=== PATIENT | male | born 1955 | race Caucasian/White ===

== ENCOUNTER 2016-10-26 13:30 | Emergency (ER) | payer OTHER ==
[~2016-10-26] VITALS: Ht 170.2 cm; Wt 58.1 kg
--- NOTE | ~2016-10-26 | EKG ---
[place] [address] [facility] [place] [address] ELECTROCARDIOGRAM REPORT Name: STEPHY STRINGER [id number] Admission: 10/26/16 Attend Phys: Discharge: 10/26/16 Date of : 53 Report #: [id number] THIS REPORT FOR: //name// [facility] ED Test Date: 2016-10-26 Test Time: 13:46:39 Pat Name: STEPHY STRINGER Department: Room: Gender: M Electrical Accessories I Assembler: Denilson HOLGUIN : 1955 Requested By: Saundra Leslie Order Number: [id number] MD: Fernando Reynaga Measurements Intervals [place] Rate: 96 P: 111 [place]: 130 QRS: 122 QRSD: 80 T: 131 QT: 330 QTc: 417 Interpretive Statements Right and left arm electrode reversal, interpretation assumes no reversal Sinus rhythm Consider left ventricular hypertrophy Anterior ST elevation, probably due to LVH Tall T, consider metabolic/ischemic abnrm Baseline wander in lead(s) II,III,aVF Electronically Signed On 10-26-2016 18:06:03 CDT by Fernando Reynaga [email or web address] <ELECTRONICALLY SIGNED> By: Fernando Reynaga MD 10/26/16 1806 1346 1346 Fernando Reynaga MD /EPI
--- NOTE | ~2016-10-26 | EKG ---
[address] [address] ELECTROCARDIOGRAM REPORT Name: STEPHY STRINGER Room #: [facility]#: [id number] Admission: 10/26/16 Attend Phys: Discharge: 10/26/16 Date of : 53 Report #: [id number] THIS REPORT FOR: //name// [facility] ED Test Date: 2016-10-26 Test Time: 14:09:56 Pat Name: SETPHY STRINGER Department: Room: Gender: M Surgical Orderly: DOROTHY : 1955 Requested By: Saundra Leslie Order Number: [id number] MD: Fernando Reynaga Measurements Intervals [place] Rate: 86 P: 49 [place]: 138 QRS: 54 QRSD: 77 T: 46 QT: 344 QTc: 412 Interpretive Statements Sinus rhythm Minimal ST elevation, anterior leads Compared to ECG 07/08/2016 15:18:29 ST (T wave) deviation now present Electronically Signed On 10-26-2016 18:06:41 CDT by Fernando Reynaga [email or web address] <ELECTRONICALLY SIGNED> By: Fernando Reynaga MD 10/26/16 1806 08 08 Fernando Reynaga MD /АННА
[~2016-10-26 13:30] MED LIST: AVELOX400 MG PO; CHANTIX1 EACH PO; GLUCOPHAGE1000 MG PO; GLUCOPHAGE500 MG PO; GLUCOTROL5 MG; HUMALOG100 UNIT/1 SUBQ; LANTUS100 UNIT/M SUBQ; LORTAB 5 MG/5001 TA1 PO; METFORMIN; NEXIUM; NORCO 5-325 TA1 EACH PO; PENICILLIN VK250 MG PO
[2016-10-26 14:14] LABS: ABSOLUTE NEUTROPHILS 11.7 thou/uL (1.4-8.2); BASOPHILS 0.9 % (0.0-2.0); EOSINOPHILS 1.1 % (0.0-3.0); HEMATOCRIT 37.3 % (42.0-52.0); HEMOGLOBIN 12.3 gm/dL (14.0-18.0); LYMPHOCYTES 16.9 % (24.0-44.0); MCH 29.4 pg (26.0-34.0); MONOCYTES 10.5 % (1.0-8.0); PLATELET COUNT 507 thou/uL (150-400); POLYS 70.6 % (36.0-66.0); RBC 4.19 mil/uL (4.50-6.00); RDW 13.2 % (10.5-14.5); WBC 16.6 thou/uL (4.0-11.0)
[2016-10-26 14:15] LABS: MANUAL DIFF NO
[2016-10-26 14:18] LABS: ANION GAP 7 mmol/L (7-16); BUN 18 mg/dL (7-18); CALCIUM 8.4 mg/dL (8.5-10.1); CHLORIDE 98 mmol/L (98-107); CO2 24 mmol/L (21-32); CREATININE 1.4 mg/dL (0.7-1.3); GLUCOSE 274 mg/dL (74-106); POTASSIUM 5.6 mmol/L (3.5-5.1); SODIUM 129 mmol/L (136-145)
[2016-10-26 14:27] LABS: TROPONIN-I < 0.04 ng/mL (<0.04-0.07)
[2016-10-26] MEDS ORDERED: NORCO 5-325 TA1 EACH PO (16:32)
== END 2016-10-26 17:13 | disposition home or self-care (01) ==
LOC: ER 13:30
PROVIDERS: Emergency Medicine
DX: R07.9 Chest pain, unspecified (principal); K56.7 Ileus, unspecified; D72.829 Elevated white blood cell count, unspecified

== ENCOUNTER 2017-04-05 15:53 | Inpatient (IN) | payer OTHER ==
[~2017-04-05] VITALS: Ht 170.2 cm; Wt 49.4 kg
--- NOTE | ~2017-04-05 | EKG ---
[address] [place] [address] ELECTROCARDIOGRAM REPORT Name: MYKESTEPHY A Room #: 355-P ADM IN M.R.#: [id number] Admission: 04/05/17 Attend Phys: Flora Penny Discharge: Date of : 53 Report #: [id number] THIS REPORT FOR: //name// [facility] ED Test Date: 2017-04-05 Test Time: 18:07:07 Pat Name: STEPHY STRINGER Department: Room: [facility] Gender: M Community Nutrition Educator: [id number] : 1955 Requested By: Bob Roque Order Number: [id number] MD: Fernando Reynaga Measurements Intervals [place] Rate: 73 P: 56 [place]: 151 QRS: 55 QRSD: 83 T: 42 QT: 371 QTc: 409 Interpretive Statements Sinus rhythm Consider left ventricular hypertrophy Compared to ECG 10/26/2016 14:09:56 ST (T wave) deviation no longer present Electronically Signed On 04-05-2017 21:36:59 FURNITURE FINISHER by Fernando Reynaga [email or web address] <ELECTRONICALLY SIGNED> By: Fernando Reynaga MD 04/05/17 2136 06 06 Fernando Reynaga MD /EPI
--- NOTE | ~2017-04-05 | CNG ---
[facility] [place] [address] CYTO-NONGYN REPORT PROCEDURE Name: DEVIN LONG SR Room #: 355-P ADM IN M.R.#: [id number] Admission: 04/05/17 Date of : 53 Discharge: Report #: [id number] Path Case #: [id number] CYTOPATHOLOGY REPORT COLLECTION DATE: 04/06/2017 RECEIVED DATE: 04/06/2017 SUBMITTING PHYS: Dr. Richard Esqueda OTHER PHYS: Dr. Flora Penny CLINICAL HISTORY: Hemoptysis, leukocytosis SPECIMEN(S) RECEIVED: A.Sputum * * * * * * * * * * * * FINAL DIAGNOSIS: A. Sputum: - Unsatisfactory specimen for adequate cytologic evaluation due to lack of pulmonary macrophages representing the lower respiratory tract. PATHOLOGIST: Diaz Jackson M.D. REPORT ELECTRONICALLY SIGNED BY: Diaz Jackson M.D. DATE/TIME: 04/07/2017 09:39 * * * * * * * * * * * * GROSS PATHOLOGY: A. Sputum: The specimen is submitted unfixed, labeled "Devin Long Sr". Received by the Cytology Department is one mL of cloudy red fluid. One ThinPrep slide was prepared. (mm 04.06.2017) CARBON PRINTER(S): SIMON Bird([facility]) INITIAL CPT CODE(S): A; 06937 Professional services performed by [facility] at [facility] [address] , [place] [address] Technical services performed by [facility] at [address] [place] [address]., [address], [place] [address]. [facility] [address] [place] [address], [address] [place] [address] PHONE: [phone] [facility] [address] [place] [address] CYTO-NONGYN REPORT PROCEDURE Name: DEVIN LONG Room #: 355-P ADM IN M.R.#: [id number] Admission: 04/05/17 Date of : 53 Discharge: Report #: [id number] Path Case #: [id number] DIRECTOR: Isidro Toscano M.D. * * * END OF REPORT * * *
--- NOTE | ~2017-04-05 | HC ---
[facility] [address] CONSULTATION Name: STEPHY STRINGER Room #: 355-P [facility] IN ..#: [id number] Admission: 04/05/17 Attend Phys: Flora Penny Discharge: 04/07/17 Date of : 53 Report #: [id number] THIS REPORT FOR: //name// CC: Bhavik Roque MD [facility] physician/PCP Flora Penny MD DATE OF SERVICE: 04/05/2017 HYDROELECTRIC PLANT ELECTRICIAN: Noman Menchaca MD REASON FOR CONSULTATION: Bleeding from the upper respiratory tract. SPECIALITY: Otolaryngology. HISTORY OF PRESENT ILLNESS: The patient is a 61-year-old male who is a very poor historian. He has a history of insulin-dependent diabetes. He has had some bleeding from the nose two days ago. Last night or today, he started coughing up bright red blood this morning. He thought it was coming from his mouth. He no longer had any bleeding from the nose today. He presented to the Emergency Room and was admitted for this. Upon evaluation here, no site of bleeding was detected. He had a negative CT of his head and a negative sinus CT. His white blood cell count is elevated at 16,000. He has anemia with hemoglobin of 10.4. He has platelet count of 450,000. Upon further discussion, I learned that he had a bone marrow biopsy about 8 months ago at the [facility] where he works. He reported that the bone marrow biopsy was normal and that the bone marrow biopsy was done because of abnormal blood tests like these. 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 I also learned way into the conversation that he has been taking a quick pain medicine called "Painaid." This contains acetaminophen, aspirin and caffeine. He has been taking high doses of this over the last week for dental pain. PAST MEDICAL HISTORY: 1. Pancreatitis. 2. Insulin-dependent diabetes mellitus. PAST SURGICAL HISTORY: Cholecystectomy and kidney surgery. SOCIAL HISTORY: Smokes a pack per day and drinks 4-5 beers per day. [facility] [address] [place] [address] CONSULTATION Name: MYKELAURENSonido Gutierres Room #: 355-P [facility]#: [id number] Admission: 04/05/17 Attend Phys: Flora Penny Discharge: 04/07/17 Date of : 53 Report #: [id number] ALLERGIES: None. MEDICATIONS: On admission, insulin and pantoprazole. PHYSICAL EXAMINATION: GENERAL: [place] -[place] male in no acute distress. HEENT: Ears: Normal tympanic membranes. Nose: Deviated septum to the left, otherwise normal mucosa with no signs of bleeding from the nose. Oral: Very poor dentition with rotting teeth. There are a few petechiae of the soft palate and hard palate. Initially, there was no bleeding encountered, but later during the exam one of these petechiae began bleeding. FIBEROPTIC LARYNGOSCOPY: Fiberoptic laryngoscope was passed through the right side of the nose. The nasopharynx looks normal. The hypopharynx and oropharynx looked normal. The larynx looks normal with normal vocal cord mobility and no pathology. There was some fresh blood in the vallecula. ASSESSMENT: 1. Bleeding from soft palate and hard palate in small amounts in a patient who has been taking heavy doses of aspirin. 2. Anemia, leukocytosis and thrombocytosis of uncertain etiology. I suspect a myeloproliferative disorder, although this has been evaluated apparently by Hematology/Oncology. RECOMMENDATION: 1. My findings were discussed with Dr. Sai Esqueda. I have suggested to the patient that he return to the [place] to continue his workup there since he has a regular group of physicians he sees there and since he works there. Otherwise, I think we would be repeating his previous hematology evaluation. 2. I applied some silver nitrate to the bleeding site on the palate with a silver nitrate stick. <ELECTRONICALLY SIGNED> By: Noman Menchaca MD 04/07/17 1736 39 2240 Noman Menchaca MD /nt
[2017-04-05 15:54] VITALS: BP 168/100
[2017-04-05 17:18] LABS: HEMOGLOBIN 10.4 gm/dL (14.0-18.0); MCH 30.4 pg (26.0-34.0); MCHC 33.5 g/dL (28.0-37.0); MCV 90.9 fL (80.0-100.0); RBC 3.41 mil/uL (4.50-6.00); RDW 12.6 % (10.5-14.5); WBC 17.3 thou/uL (4.0-11.0)
[2017-04-05] MEDS ORDERED: NOVOLOG100 UNIT/1 SUBQ (17:24)
[2017-04-05 17:28] LABS: CALCIUM 8.6 mg/dL (8.5-10.1); CREATININE 1.6 mg/dL (0.7-1.3); POTASSIUM 4.6 mmol/L (3.5-5.1)
[2017-04-05 17:32] LABS: APTT 26.2 Seconds (24.5-32.8); INR 1.1; PROTIME 11.6 Seconds (9.3-11.4)
[2017-04-05 19:08] LABS: AMP/METHAMP Negative (Negative); BARBITURATES Negative (Negative); BENZODIAZEPINES Negative (Negative); COCAINE Negative (Negative); METHADONE Negative (Negative); OPIATES Negative (Negative); PCP Negative (Negative); THC Negative (Negative)
[2017-04-05 19:27] VITALS: BP 154/92
[2017-04-05 19:35] VITALS: BP 169/84
[2017-04-05 23:47] VITALS: BP 147/90
[2017-04-06 01:43] LABS: ABSOLUTE NEUTROPHILS 9.9 thou/uL (1.4-8.2); BASOPHILS 0.8 % (0.0-2.0); EOSINOPHILS 1.6 % (0.0-3.0); HEMATOCRIT 34.6 % (42.0-52.0); HEMOGLOBIN 11.3 gm/dL (14.0-18.0); LYMPHOCYTES 30.6 % (24.0-44.0); MCH 29.7 pg (26.0-34.0); MCHC 32.8 g/dL (28.0-37.0); MCV 90.7 fL (80.0-100.0); MONOCYTES 10.4 % (1.0-8.0); PLATELET COUNT 452 thou/uL (150-400); POLYS 56.6 % (36.0-66.0); RBC 3.81 mil/uL (4.50-6.00); RDW 12.3 % (10.5-14.5); WBC 17.5 thou/uL (4.0-11.0)
[2017-04-06 01:49] LABS: MANUAL DIFF NO
[2017-04-06 01:57] LABS: ALBUMIN 3.1 g/dL (3.4-5.0); CALCIUM 8.8 mg/dL (8.5-10.1); CREATININE 1.8 mg/dL (0.7-1.3); MAGNESIUM 1.5 mg/dL (1.8-2.4); TOTAL BILIRUBIN 0.6 mg/dL (<0.1-1.0)
[2017-04-06 04:00] VITALS: BP 128/73
[2017-04-06 07:26] VITALS: BP 157/74
[2017-04-06 08:51] LABS: CHOLESTEROL 121 mg/dL (<200); HDL CHOLESTEROL 38 mg/dL (>40); LDL CHOLESTEROL 61 mg/dL (<100); TC:HDL 3.2 Ratio (Not establshd); TRIGLYCERIDE 113 mg/dL (<150); TROPONIN-I < 0.04 ng/mL (<0.06); VLDL 23 mg/dL (<40)
[2017-04-06 11:11] VITALS: BP 169/69
[2017-04-06 15:14] VITALS: BP 130/68
[2017-04-06 16:08] LABS: GLYCOHEMOGLOBIN (HGB A1C) 8.9 % (4.8-5.6)
[2017-04-06 20:20] VITALS: BP 140/66
[2017-04-07 04:35] VITALS: BP 126/70
[2017-04-07 05:44] LABS: HEMATOCRIT 32.5 % (42.0-52.0); MCH 30.6 pg (26.0-34.0); MCHC 33.8 g/dL (28.0-37.0); MCV 90.5 fL (80.0-100.0); RBC 3.59 mil/uL (4.50-6.00); RDW 12.9 % (10.5-14.5); WBC 14.7 thou/uL (4.0-11.0)
[2017-04-07 08:06] VITALS: BP 137/76
[2017-04-07 09:23] VITALS: BP 137/76
[2017-04-08 14:07] LABS: NIL (NEGATIVE) CONTROL SPOT CT 1; PANEL A SPOT CT 0; PANEL B SPOT CT 0; POSITIVE CONTROL SPOT COUNT > 20; T-SPOT.TB Negative
== END 2017-04-07 10:31 | disposition home or self-care (01) | DRG 682 ==
LOC: ER 15:53 → EROBS 19:02 → 3W 19:02
PROVIDERS: Emergency Medicine; Hospitalist; Internal Medicine Pulmonary Disease; Nurse Practitioner Family
DX: N17.9 Acute kidney failure, unspecified (principal); E43 Unspecified severe protein-calorie malnutrition; R04.2 Hemoptysis; Z68.1 Body mass index [BMI] 19.9 or less, adult; R04.0 Epistaxis; G89.29 Other chronic pain; E11.22 Type 2 diabetes mellitus with diabetic chronic kidney disease; C67.9 Malignant neoplasm of bladder, unspecified; F17.210 Nicotine dependence, cigarettes, uncomplicated; D72.829 Elevated white blood cell count, unspecified; D64.9 Anemia, unspecified; N18.9 Chronic kidney disease, unspecified; J43.9 Emphysema, unspecified; D47.3 Essential (hemorrhagic) thrombocythemia; Z79.899 Other long term (current) drug therapy; Z86.718 Personal history of other venous thrombosis and embolism; Z86.711 Personal history of pulmonary embolism; Z79.4 Long term (current) use of insulin; Z90.49 Acquired absence of other specified parts of digestive tract
CPT/HCPCS: 10779

== ENCOUNTER → 2017-06-24 | Outpatient (CLI) | payer BC, OTHER ==
[~2017-06-24] MED LIST changes: +ALDACTONE50 MG PO; +ASPIR 8181 MG PO; +COZAAR 25 MG TA25 M1 PO; +IBUPROFEN 600600 M1 PO; +METFORMIN HCL500 MG PO; +NOVOLOG100 UNIT/1 SUBQ
== END ==
LOC: RAD 16:31
DX: M51.36 Other intervertebral disc degeneration, lumbar region (principal); M25.561 Pain in right knee; M25.562 Pain in left knee

== ENCOUNTER 2017-08-15 07:23 | Emergency (ER) | payer BC, OTHER ==
[~2017-08-15] VITALS: Ht 170.2 cm; Wt 63.5 kg
--- NOTE | ~2017-08-15 | EKG ---
[address] [address] ELECTROCARDIOGRAM REPORT Name: STEPHY STRINGER Room #: [facility]#: [id number] Admission: 08/15/17 Attend Phys: Discharge: 08/15/17 Date of : 53 Report #: [id number] THIS REPORT FOR: //name// [facility] ED Test Date: 2017-08-15 Test Time: 07:51:28 Pat Name: STEPHY STRINGER Department: Room: Gender: M Child Nutrition Assistant: KF : 1955 Requested By: Saundra Leslie Order Number: [id number] MD: Fernando Reynaga Measurements Intervals [place] Rate: 87 P: 53 [place]: 145 QRS: 53 QRSD: 73 T: 46 QT: 349 QTc: 420 Interpretive Statements Sinus rhythm Atrial premature complex Compared to ECG 04/05/2017 18:07:07 Atrial premature complex(es) now present Electronically Signed On 08-15-2017 11:00:15 CDT by Fernando Reynaga [email or web address] <ELECTRONICALLY SIGNED> By: Fernando Reynaga MD 08/15/17 1100 0 075 Fernando Reynaga MD /АННА
[~2017-08-15 07:23] MED LIST changes: -ALDACTONE50 MG PO; -ASPIR 8181 MG PO; -COZAAR 25 MG TA25 M1 PO; -IBUPROFEN 600600 M1 PO; -METFORMIN HCL500 MG PO
[2017-08-15 07:51] LABS: HEMATOCRIT 34.9 % (42.0-52.0); HEMOGLOBIN 11.6 gm/dL (14.0-18.0); MCH 31.4 pg (26.0-34.0); MCHC 33.3 g/dL (28.0-37.0); MCV 94.3 fL (80.0-100.0); PLATELET COUNT 506 thou/uL (150-400); RDW 13.9 % (10.5-14.5); WBC 15.3 thou/uL (4.0-11.0)
[2017-08-15 07:58] LABS: ANION GAP 8 mmol/L (7-16); BUN 9 mg/dL (7-18); CALCIUM 9.1 mg/dL (8.5-10.1); CHLORIDE 106 mmol/L (98-107); CO2 24 mmol/L (21-32); CREATININE 1.4 mg/dL (0.7-1.3); GLUCOSE 295 mg/dL (74-106); POTASSIUM 4.8 mmol/L (3.5-5.1); SODIUM 138 mmol/L (136-145)
[2017-08-15 08:02] LABS: ALBUMIN 2.4 g/dL (3.4-5.0); DIRECT BILIRUBIN 0.3 mg/dL (<0.1-0.3); TOTAL BILIRUBIN 0.7 mg/dL (<0.1-1.0); TOTAL PROTEIN 6.6 g/dL (6.4-8.2)
[2017-08-15 08:07] LABS: TROPONIN-I < 0.04 ng/mL (<0.06)
[2017-08-15 08:51] LABS: ABSOLUTE NEUTROPHILS 10.4 thou/uL (1.4-8.2); ANISOCYTOSIS 1+; HYPOCHROMASIA 1+; TARGET CELLS OCCASIONAL
[2017-08-15] MEDS ORDERED: IBUPROFEN 600600 M1 PO (09:06)
[2017-08-15] MEDS ORDERED: NORCO 5-325 TA1 EACH PO (09:08)
== END 2017-08-15 09:34 | disposition home or self-care (01) ==
LOC: ER 07:23
PROVIDERS: Emergency Medicine
DX: I80.3 Phlebitis and thrombophlebitis of lower extremities, unspecified (principal); R60.0 Localized edema; D72.829 Elevated white blood cell count, unspecified; R94.5 Abnormal results of liver function studies; E11.9 Type 2 diabetes mellitus without complications; F17.210 Nicotine dependence, cigarettes, uncomplicated; Z85.51 Personal history of malignant neoplasm of bladder

== ENCOUNTER 2018-02-24 18:33 | Inpatient (IN) | payer BC, OTHER ==
[~2018-02-24] VITALS: Ht 170.2 cm; Wt 55.6 kg
--- NOTE | ~2018-02-24 | PATH ---
[facility] [address] [address] PATHOLOGY RPT PROCEDURE Name: STEPHY STRINGER Room #: 363-P [facility] IN ..#: [id number] Admission: 02/24/18 Date of : 53 Discharge: 02/27/18 Report #: [id number] Path Case #: [id number] Note [facility] Accession Number: [id number] TESTS RESULT FLAG UNITS REF RANGE LAB Clinician Provided Cytology Information No. of containers..01 Other (Miscellaneous) Source: ABDOMINAL FLUID DIAGNOSIS: 02 ABDOMINAL FLUID INCONCLUSIVE. THIS INTERPRETATION INCLUDES EVALUATION OF A CELL BLOCK. 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 Signed out by: 02 Fantasma Vidal MD, Pathologist NPI- [id number] Performed by: 01 Brigido Ernandez, Trailer Rental Clerk ([facility]) Gross description: 01 18ML, YELLOW, CLOUDY /LCS FLAG LEGEND: L-Low Normal,H-High Normal,LL-Alert Low,HH-Alert High <-Panic Low,>-Panic High,A-Abnormal,AA-Critical Abnormal Performed at: [address] [place] [address] Julián Sloan MD, [address] [address] Edith Gray MD, Specimen Comment: Report sent to Performed at: [address], [place], [place] [id number] MD Julián Sloan MD Phone: [phone]
--- NOTE | ~2018-02-24 | EKG ---
[address] [place] [address] ELECTROCARDIOGRAM REPORT Name: MYKESTEPHY Gutierres Room #: [facility]#: [id number] Admission: Attend Phys: Discharge: Date of : 53 Report #: [id number] THIS REPORT FOR: //name// [facility] ED Test Date: 2018-02-24 Test Time: 18:43:30 Pat Name: STEPHY STRINGER Department: Room: Gender: M Restaurant Host: MIKALA : 1955 Requested By: Noman Longoria Order Number: [id number] MD: Measurements Intervals [place] Rate: 113 P: 50 [place]: 144 QRS: 49 QRSD: 76 T: 44 QT: 307 QTc: 421 Interpretive Statements Sinus tachycardia Anteroseptal infarct, old Compared to ECG 08/15/2017 07:51:28 Myocardial infarct finding now present Sinus rhythm no longer present Atrial premature complex(es) no longer present [email or web address] By: 42 42 Epiphany Epiphany, /EPI
[~2018-02-24 18:33] MED LIST changes: +IBUPROFEN 600600 M1 PO
[2018-02-24 18:34] VITALS: BP 151/88
[2018-02-24 19:38] LABS: HEMATOCRIT 38.6 % (42.0-52.0); HEMOGLOBIN 13.3 gm/dL (14.0-18.0); MCH 31.8 pg (26.0-34.0); MCHC 34.5 g/dL (28.0-37.0); MCV 92.2 fL (80.0-100.0); PLATELET COUNT 544 thou/uL (150-400); RBC 4.19 mil/uL (4.50-6.00); RDW 14.6 % (10.5-14.5); WBC 12.3 thou/uL (4.0-11.0)
[2018-02-24 19:55] LABS: ANION GAP 7 mmol/L (7-16); BUN 7 mg/dL (7-18); CALCIUM 8.7 mg/dL (8.5-10.1); CHLORIDE 97 mmol/L (98-107); CO2 19 mmol/L (21-32); GLUCOSE 203 mg/dL (74-106); POTASSIUM 5.3 mmol/L (3.5-5.1); SODIUM 123 mmol/L (136-145)
[2018-02-24 20:00] LABS: ALBUMIN 2.4 g/dL (3.4-5.0); DIRECT BILIRUBIN 0.2 mg/dL (<0.1-0.3); SGOT 105 U/L (15-37); SGPT 43 U/L (30-65); TOTAL BILIRUBIN 0.8 mg/dL (<0.1-1.0); TOTAL PROTEIN 7.5 g/dL (6.4-8.2); TROPONIN-I <0.06 ng/mL (<0.06)
[2018-02-24 20:06] LABS: ABSOLUTE NEUTROPHILS 6.8 thou/uL (1.4-8.2); ANISOCYTOSIS 1+
[2018-02-24] MEDS ORDERED: METFORMIN HCL500 MG PO (21:04)
[2018-02-24 22:46] VITALS: BP 143/87
[2018-02-24 23:46] VITALS: BP 148/87
[2018-02-25] MEDS ORDERED: COZAAR 25 MG TA25 M1 PO (01:47)
[2018-02-25] MEDS ORDERED: ASPIR 8181 MG PO (01:47)
[2018-02-25 04:03] VITALS: BP 124/75
[2018-02-25 06:12] LABS: HEMATOCRIT 40.6 % (42.0-52.0); HEMOGLOBIN 13.8 gm/dL (14.0-18.0); MCH 31.7 pg (26.0-34.0); MCV 93.1 fL (80.0-100.0); RBC 4.36 mil/uL (4.50-6.00); RDW 14.6 % (10.5-14.5); WBC 11.7 thou/uL (4.0-11.0)
[2018-02-25 06:21] LABS: APTT 27.6 Seconds (24.5-32.8); INR 1.2
[2018-02-25 06:30] LABS: ALBUMIN 2.5 g/dL (3.4-5.0); CALCIUM 8.8 mg/dL (8.5-10.1); CREATININE 1.1 mg/dL (0.7-1.3); POTASSIUM 4.5 mmol/L (3.5-5.1); TOTAL PROTEIN 7.4 g/dL (6.4-8.2)
[2018-02-25 08:00] VITALS: BP 126/83
[2018-02-25 11:48] LABS: SOURCE ABDOMINAL FLUID; TOTAL VOLUME 60 mL
[2018-02-25 11:49] LABS: CLARITY CLEAR; COLOR YELLOW
[2018-02-25 12:41] LABS: BF NUCLEATED CELLS 191; BF RBC 370
[2018-02-25 14:05] LABS: BF NEUTROPHILS 12
[2018-02-25 14:15] LABS: % SATURATION 97 % (20-39); IRON 168 ug/dL (65-175); TIBC 173 ug/dL (250-450)
[2018-02-25 15:07] LABS: HAV IgM AB (ANTI-HAV IgM) Negative (Negative); HEPATITIS B SURFACE AG Negative (Negative); HEPATITIS C VIRUS AB <0.1 (0.0-0.9)
[2018-02-25 16:35] VITALS: BP 139/108
[2018-02-25 20:10] VITALS: BP 144/94
[2018-02-26 05:20] VITALS: BP 129/64
[2018-02-26 07:03] LABS: HEMATOCRIT 37.7 % (42.0-52.0); MCH 32.1 pg (26.0-34.0); MCHC 34.5 g/dL (28.0-37.0); MCV 92.9 fL (80.0-100.0); RBC 4.06 mil/uL (4.50-6.00); RDW 14.5 % (10.5-14.5); WBC 13.1 thou/uL (4.0-11.0)
[2018-02-26 07:16] LABS: CALCIUM 8.9 mg/dL (8.5-10.1); CREATININE 1.2 mg/dL (0.7-1.3); POTASSIUM 4.4 mmol/L (3.5-5.1)
[2018-02-26 09:57] LABS: SOURCE ABDOMINAL
[2018-02-26 11:40] VITALS: BP 122/70
[2018-02-26 16:06] LABS: IgG 1383 mg/dL (700-1600)
[2018-02-26 19:38] VITALS: BP 137/86
[2018-02-27 03:40] VITALS: BP 105/68
[2018-02-27 04:36] LABS: HEMOGLOBIN 12.2 gm/dL (14.0-18.0); MCH 31.3 pg (26.0-34.0); MCHC 33.8 g/dL (28.0-37.0); MCV 92.5 fL (80.0-100.0); RBC 3.89 mil/uL (4.50-6.00); RDW 14.3 % (10.5-14.5); WBC 12.7 thou/uL (4.0-11.0)
[2018-02-27 04:47] LABS: CALCIUM 8.6 mg/dL (8.5-10.1); CREATININE 1.1 mg/dL (0.7-1.3)
[2018-02-27 08:34] VITALS: BP 127/103
[2018-02-27] MEDS ORDERED: ALDACTONE50 MG PO (12:01)
[2018-02-27 12:39] VITALS: BP 127/103
[2018-02-27 13:05] LABS: BODY FLUID ALBUMIN 0.7 g/dL (()); BODY FLUID AMYLASE 15 U/L (()); BODY FLUID GLUCOSE 147 mg/dL (()); BODY FLUID LDH 67 IU/L (()); BODY FLUID PROTEIN 1.8 g/dL (())
[2018-02-28 10:07] LABS: ANA INTERPRETATION Negative (Negative)
[2018-02-28 13:09] LABS: CERULOPLASMIN 28.3 mg/dL (16.0-31.0)
== END 2018-02-27 13:19 | disposition home or self-care (01) | DRG 432 ==
LOC: ER 18:33 → EROBS 22:21 → 3W 22:21
PROVIDERS: Emergency Medicine; Hospitalist; Nurse Practitioner; Nurse Practitioner Family
PROC: 0W9G3ZZ Drainage of Peritoneal Cavity, Percutaneous Approach (ICD-10-PCS; principal; 2018-02-25)
DX: K70.31 Alcoholic cirrhosis of liver with ascites (principal); K85.90 Acute pancreatitis without necrosis or infection, unspecified; E87.1 Hypo-osmolality and hyponatremia; E87.5 Hyperkalemia; M19.90 Unspecified osteoarthritis, unspecified site; G89.29 Other chronic pain; M54.9 Dorsalgia, unspecified; I10 Essential (primary) hypertension; C67.9 Malignant neoplasm of bladder, unspecified; D72.829 Elevated white blood cell count, unspecified; E11.9 Type 2 diabetes mellitus without complications; F17.210 Nicotine dependence, cigarettes, uncomplicated; Z90.49 Acquired absence of other specified parts of digestive tract; Z86.711 Personal history of pulmonary embolism; Z86.718 Personal history of other venous thrombosis and embolism; Z79.4 Long term (current) use of insulin; Z79.84 Long term (current) use of oral hypoglycemic drugs
CPT/HCPCS: 10879

== ENCOUNTER 2018-04-11 11:00 | Inpatient (IN) | payer BC, OTHER ==
[~2018-04-11] VITALS: Ht 170.2 cm; Wt 53.3 kg
--- NOTE | ~2018-04-11 | EKG ---
[address] [address] ELECTROCARDIOGRAM REPORT Name: STEPHY STRINGER Room #: 209-P [facility] IN ..#: [id number] Admission: 04/11/18 Attend Phys: To Ko MD Discharge: Date of : 53 Report #: [id number] THIS REPORT FOR: //name// [facility] ED Test Date: 2018-04-11 Test Time: 13:03:04 Pat Name: STEPHY STRINGER Department: Room: 209 Gender: M Inventory Control Assistant: CARLOS : 1955 Requested By: Isaiah Chowdary Order Number: [id number] MD: Cayetano Lizama Measurements Intervals [place] Rate: 105 P: 55 [place]: 138 QRS: 58 QRSD: 71 T: 53 QT: 322 QTc: 426 Interpretive Statements Sinus tachycardia Borderline low voltage, extremity leads Compared to ECG 02/24/2018 18:43:30 Septal Q waves less prominent Electronically Signed On 04-12-2018 8:45:52 CUSTOMER SOLUTIONS SPECIALIST by Cayetano Lizama [email or web address] <ELECTRONICALLY SIGNED> By: Cayetano Lizama MD, [facility] 04/12/18 0845 1303 130 Cayetano Lizama MD, [facility] /EPI
[~2018-04-11 11:00] MED LIST changes: +ALDACTONE50 MG PO; +ASPIR 8181 MG PO; +COZAAR 25 MG TA25 M1 PO; +METFORMIN HCL500 MG PO
[2018-04-11 11:04] VITALS: BP 160/102
[2018-04-11 13:12] LABS: HEMOGLOBIN 14.2 gm/dL (14.0-18.0); MCHC 34.7 g/dL (28.0-37.0); MCV 92.4 fL (80.0-100.0); RBC 4.44 mil/uL (4.50-6.00); RDW 14.1 % (10.5-14.5); WBC 21.1 thou/uL (4.0-11.0)
[2018-04-11 13:21] LABS: CALCIUM 9.9 mg/dL (8.5-10.1); CREATININE 1.3 mg/dL (0.7-1.3)
[2018-04-11 13:22] LABS: POTASSIUM 6.1 mmol/L (3.5-5.1)
[2018-04-11 13:27] LABS: ALBUMIN 3.4 g/dL (3.4-5.0); TOTAL BILIRUBIN 0.7 mg/dL (<0.1-1.0); TOTAL PROTEIN 9.2 g/dL (6.4-8.2)
[2018-04-11 13:29] LABS: ABSOLUTE NEUTROPHILS 19.4 thou/uL (1.4-8.2); ANISOCYTOSIS SLIGHT
[2018-04-11 13:45] LABS: PLATELET COUNT 797 thou/uL (150-400)
[2018-04-11 14:10] LABS: URINE BILIRUBIN NEGATIVE (Negative); URINE BLOOD NEGATIVE (Negative); URINE CLARITY CLEAR; URINE COLOR YELLOW; URINE GLUCOSE-RANDOM* NEGATIVE (Negative); URINE KETONES NEGATIVE (Negative); URINE LEUKOCYTES-REFLEX NEGATIVE (Negative); URINE NITRITE-REFLEX NEGATIVE (Negative); URINE PROTEIN (DIPSTICK) NEGATIVE (Negative); URINE UROBILINOGEN 0.2 E.U./dl (0.2-1.0)
[2018-04-11 15:17] VITALS: BP 151/96
[2018-04-11 16:00] VITALS: BP 150/60
[2018-04-11 16:30] VITALS: BP 138/96
[2018-04-11 18:03] LABS: CLARITY CLEAR; COLOR YELLOW; SOURCE ABDOMEN; TOTAL VOLUME 4 mL
[2018-04-11 18:10] LABS: BF NUCLEATED CELLS 197; BF RBC 316
[2018-04-11 18:50] LABS: BF NEUTROPHILS 9
[2018-04-11 18:51] LABS: BF MACROPHAGE 14
[2018-04-11 19:37] VITALS: BP 125/83
[2018-04-11 23:45] VITALS: BP 108/74
[2018-04-12 02:50] LABS: HEMATOCRIT 34.7 % (42.0-52.0); MCH 30.4 pg (26.0-34.0); MCHC 32.5 g/dL (28.0-37.0); MCV 93.6 fL (80.0-100.0); RBC 3.71 mil/uL (4.50-6.00); RDW 14.1 % (10.5-14.5); WBC 18.6 thou/uL (4.0-11.0)
[2018-04-12 02:53] LABS: HEMOGLOBIN 11.3 gm/dL (14.0-18.0)
[2018-04-12 03:34] LABS: CALCIUM 8.6 mg/dL (8.5-10.1); CREATININE 1.2 mg/dL (0.7-1.3); POTASSIUM 5.2 mmol/L (3.5-5.1)
[2018-04-12 04:44] VITALS: BP 103/71
[2018-04-12 08:05] VITALS: BP 118/78
[2018-04-12 11:07] LABS: BODY FLUID ALBUMIN 0.9 g/dL (()); BODY FLUID AMYLASE 29 U/L (()); BODY FLUID GLUCOSE 200 mg/dL (()); BODY FLUID LDH 79 IU/L (()); BODY FLUID PROTEIN 2.3 g/dL (())
[2018-04-12 11:45] VITALS: BP 123/89
[2018-04-12 16:15] VITALS: BP 126/92
[2018-04-12 19:40] VITALS: BP 116/77
[2018-04-13 04:55] VITALS: BP 118/87
[2018-04-13 05:18] LABS: HEMATOCRIT 32.3 % (42.0-52.0); HEMOGLOBIN 10.8 gm/dL (14.0-18.0); MCH 31.7 pg (26.0-34.0); MCHC 33.6 g/dL (28.0-37.0); MCV 94.3 fL (80.0-100.0); RBC 3.42 mil/uL (4.50-6.00); RDW 14.3 % (10.5-14.5); WBC 12.6 thou/uL (4.0-11.0)
[2018-04-13 05:25] LABS: CALCIUM 8.4 mg/dL (8.5-10.1); CREATININE 1.2 mg/dL (0.7-1.3); POTASSIUM 4.7 mmol/L (3.5-5.1)
[2018-04-13 09:10] VITALS: BP 130/80
[2018-04-13 09:21] LABS: SOURCE ABDOMINAL
[2018-04-13 11:04] VITALS: BP 133/87
[2018-04-13 14:33] VITALS: BP 130/89
[2018-04-13 20:36] VITALS: BP 128/83
[2018-04-13 22:56] VITALS: BP 128/83
[2018-04-14 04:10] VITALS: BP 128/86
[2018-04-14 10:27] LABS: CALCIUM 9.2 mg/dL (8.5-10.1); MAGNESIUM 1.5 mg/dL (1.8-2.4); POTASSIUM 4.7 mmol/L (3.5-5.1)
[2018-04-14 10:28] LABS: HEMATOCRIT 35.6 % (42.0-52.0); MCH 31.7 pg (26.0-34.0); MCHC 33.8 g/dL (28.0-37.0); MCV 93.9 fL (80.0-100.0); RBC 3.79 mil/uL (4.50-6.00); RDW 13.9 % (10.5-14.5)
[2018-04-14 11:31] VITALS: BP 129/74
[2018-04-14 19:46] VITALS: BP 145/94
[2018-04-14 20:49] VITALS: BP 145/94
[2018-04-15 01:48] LABS: HEMATOCRIT 29.7 % (42.0-52.0); MCHC 33.4 g/dL (28.0-37.0); RBC 3.19 mil/uL (4.50-6.00); WBC 11.5 thou/uL (4.0-11.0)
[2018-04-15 01:55] LABS: HEMOGLOBIN 9.9 gm/dL (14.0-18.0)
[2018-04-15 01:58] LABS: CALCIUM 8.6 mg/dL (8.5-10.1); CREATININE 1.2 mg/dL (0.7-1.3); MAGNESIUM 1.7 mg/dL (1.8-2.4)
[2018-04-15 01:59] LABS: POTASSIUM 5.2 mmol/L (3.5-5.1)
[2018-04-15 05:40] VITALS: BP 121/83
[2018-04-15 07:48] VITALS: BP 127/79
[2018-04-15 12:00] VITALS: BP 145/98
[2018-04-15 16:00] VITALS: BP 150/93
[2018-04-15 19:40] VITALS: BP 155/72
[2018-04-15 20:00] VITALS: BP 129/90
[2018-04-16 04:30] VITALS: BP 103/70
[2018-04-16 04:55] LABS: HEMATOCRIT 31.8 % (42.0-52.0); MCH 32.3 pg (26.0-34.0); MCHC 34.6 g/dL (28.0-37.0); MCV 93.3 fL (80.0-100.0); RBC 3.41 mil/uL (4.50-6.00); RDW 14.2 % (10.5-14.5); WBC 12.7 thou/uL (4.0-11.0)
[2018-04-16 05:10] LABS: CALCIUM 8.6 mg/dL (8.5-10.1); MAGNESIUM 1.4 mg/dL (1.8-2.4); POTASSIUM 5.1 mmol/L (3.5-5.1)
[2018-04-16 08:22] VITALS: BP 123/67
[2018-04-16 11:59] LABS: INR 1.2; PROTIME 12.1 Seconds (9.3-11.4)
[2018-04-16] MEDS ORDERED: CEFDINIR300 MG PO (14:12)
[2018-04-16] MEDS ORDERED: LASIX 40 MG TAB40 M1 PO (14:15)
[2018-04-16] MEDS ORDERED: HYDROCODON-ACE1 EAC7 PO (14:15)
[2018-04-16 14:27] VITALS: BP 123/67
== END 2018-04-16 15:00 | disposition home or self-care (01) | DRG 432 ==
LOC: ER 11:00 → 2N 14:47 → EROBS 14:47 → 2N 15:58
PROVIDERS: Hospitalist; Internal Medicine; Physician Assistant
DX: K70.31 Alcoholic cirrhosis of liver with ascites (principal); K65.2 Spontaneous bacterial peritonitis; E43 Unspecified severe protein-calorie malnutrition; K76.6 Portal hypertension; Z68.1 Body mass index [BMI] 19.9 or less, adult; I10 Essential (primary) hypertension; E87.5 Hyperkalemia; M19.90 Unspecified osteoarthritis, unspecified site; F17.210 Nicotine dependence, cigarettes, uncomplicated; K42.9 Umbilical hernia without obstruction or gangrene; E11.65 Type 2 diabetes mellitus with hyperglycemia; Z90.49 Acquired absence of other specified parts of digestive tract; Z86.718 Personal history of other venous thrombosis and embolism; Z86.711 Personal history of pulmonary embolism; Z79.899 Other long term (current) drug therapy
CPT/HCPCS: 10081; 10797; 27000

== ENCOUNTER 2018-07-11 19:26 | Emergency (ER) | payer OTHER ==
[~2018-07-11] VITALS: Ht 170.2 cm; Wt 53.5 kg
[~2018-07-11 19:26] MED LIST changes: +CEFDINIR300 MG PO; +HYDROCODON-ACE1 EAC7 PO; +LASIX 40 MG TAB40 M1 PO
[2018-07-11] MEDS ORDERED: ASPIR 8181 MG PO (20:25)
[2018-07-11] MEDS ORDERED: GLUCOPHAGE1000 MG PO (20:25)
[2018-07-11 20:37] LABS: HEMATOCRIT 28.3 % (42.0-52.0); MCH 37.1 pg (26.0-34.0); MCHC 35.2 g/dL (28.0-37.0); MCV 105.5 fL (80.0-100.0); PLATELET COUNT 784 thou/uL (150-400); RBC 2.68 mil/uL (4.50-6.00); RDW 22.2 % (10.5-14.5); WBC 9.1 thou/uL (4.0-11.0)
[2018-07-11 20:46] LABS: ANION GAP 8 mmol/L (7-16); BUN 18 mg/dL (7-18); CALCIUM 9.1 mg/dL (8.5-10.1); CHLORIDE 99 mmol/L (98-107); CO2 26 mmol/L (21-32); CREATININE 1.7 mg/dL (0.7-1.3); GLUCOSE 164 mg/dL (74-106); POTASSIUM 5.5 mmol/L (3.5-5.1); SODIUM 133 mmol/L (136-145)
[2018-07-11 20:55] LABS: TROPONIN-I <0.06 ng/mL (<0.06)
[2018-07-11 21:17] LABS: ABSOLUTE NEUTROPHILS 6.5 thou/uL (1.4-8.2)
[2018-07-11 21:18] LABS: ANISOCYTOSIS 2+; TARGET CELLS 1+
[2018-07-12] MEDS ORDERED: ULTRAM 50MG TAB50 MG PO (01:42)
[2018-07-12 02:37] LABS: CALCIUM 8.1 mg/dL (8.5-10.1); CREATININE 1.7 mg/dL (0.7-1.3)
[2018-07-12 02:41] LABS: POTASSIUM 5.8 mmol/L (3.5-5.1)
[2018-07-12 03:00] VITALS: BP 108/67
--- NOTE | 2018-07-12 08:32 | EKG ---
[place] [address] [facility] [place] [address] ELECTROCARDIOGRAM REPORT Name: STEPHY STRINGER Room #: [facility]#: [id number] ������������������ Admission: 07/11/18 ������������������ Attend Phys: Discharge: 07/12/18 ������������������ Date of : 53 Report #: [id number] ����������������������������������������������������������������� [id number] THIS REPORT FOR: //name// [facility] ED Test Date: 2018-07-11 Test Time: 20:15:55 Pat Name: STEPHY STRINGER Department: Room: Gender: M Concrete Block Layer: BALTAZAR : 1955 Requested By: Noman Longoria Order Number: [id number] MD: Cayetano Lizama Measurements Intervals [place] Rate: 117 P: 65 [place]: 138 QRS: 71 QRSD: 70 T: 59 QT: 301 QTc: 420 Interpretive Statements Sinus tachycardia Anteroseptal infarct, old Baseline wander in lead(s) V6 Compared to ECG 04/11/2018 13:03:04 Septal Q waves are more prominent Electronically Signed On 07-12-2018 8:32:43 TEST RIDER by Cayetano Lizama [email or web address] ��������������������������������������������� <ELECTRONICALLY SIGNED> ���������������������������������������� By: Cayetano Lizama MD, [facility] ��������������������������������������������� 07/12/18 0832 14 14 Cayetano Lizama MD, [facility] /EPI
== END 2018-07-12 03:29 | disposition home or self-care (01) ==
LOC: ER 19:26
PROVIDERS: Emergency Medicine
DX: M79.622 Pain in left upper arm (principal); R07.89 Other chest pain; I10 Essential (primary) hypertension; E11.9 Type 2 diabetes mellitus without complications; Z85.51 Personal history of malignant neoplasm of bladder; Z90.49 Acquired absence of other specified parts of digestive tract; F17.210 Nicotine dependence, cigarettes, uncomplicated

== ENCOUNTER 2018-08-29 19:44 | Inpatient (IN) | payer OTHER ==
[~2018-08-29] VITALS: Ht 170.2 cm; Wt 43.1 kg
[~2018-08-29 19:44] MED LIST changes: +ULTRAM 50MG TAB50 MG PO
[2018-08-29 20:00] VITALS: BP 129/76
[2018-08-29] MEDS ORDERED: LANTUS100 UNIT/M SUBQ (20:05)
[2018-08-29] MEDS ORDERED: HUMALOG100 UNIT/2 (20:06)
[2018-08-29 21:01] LABS: ABSOLUTE NEUTROPHILS 12.8 thou/uL (1.4-8.2); BASOPHILS 0.5 % (0.0-2.0); EOSINOPHILS 0.9 % (0.0-3.0); HEMATOCRIT 32.4 % (42.0-52.0); HEMOGLOBIN 10.8 gm/dL (14.0-18.0); MCHC 33.5 g/dL (28.0-37.0); MCV 104.6 fL (80.0-100.0); PLATELET COUNT 450 thou/uL (150-400); POLYS 83.6 % (36.0-66.0); RBC 3.09 mil/uL (4.50-6.00); WBC 15.3 thou/uL (4.0-11.0)
[2018-08-29 21:06] LABS: ANION GAP 9 mmol/L (7-16); BUN 14 mg/dL (7-18); CALCIUM 9.1 mg/dL (8.5-10.1); CHLORIDE 100 mmol/L (98-107); CO2 24 mmol/L (21-32); CREATININE 1.5 mg/dL (0.7-1.3); GLUCOSE 418 mg/dL (74-106); POTASSIUM 5.4 mmol/L (3.5-5.1); SODIUM 133 mmol/L (136-145)
[2018-08-29 21:16] LABS: ALBUMIN 3.1 g/dL (3.4-5.0); DIRECT BILIRUBIN 0.2 mg/dL (<0.1-0.3); LIPASE 23 U/L (73-393); SGOT 51 U/L (15-37); SGPT 43 U/L (30-65); TOTAL BILIRUBIN 0.3 mg/dL (<0.1-1.0); TOTAL PROTEIN 7.4 g/dL (6.4-8.2); TROPONIN-I <0.06 ng/mL (<0.06)
[2018-08-29 23:06] VITALS: BP 117/71
[2018-08-29 23:17] LABS: URINE BILIRUBIN NEGATIVE (Negative); URINE BLOOD NEGATIVE (Negative); URINE CLARITY CLEAR; URINE COLOR YELLOW; URINE GLUCOSE-RANDOM* 3+ (Negative); URINE KETONES NEGATIVE (Negative); URINE LEUKOCYTES-REFLEX NEGATIVE (Negative); URINE NITRITE-REFLEX NEGATIVE (Negative); URINE PROTEIN (DIPSTICK) NEGATIVE (Negative); URINE UROBILINOGEN 0.2 E.U./dl (0.2-1.0)
--- NOTE | 2018-08-29 23:30 | NUR ---
Pt. arrived to the unit from the emergency room accompanied by staff. He c/o chest pain (non-cardiac) and is demanding something for it. Nancy FRANCO is putting in orders now and he would have to wait. Oriented to his room. Bed alarm is on.
[2018-08-29 23:49] VITALS: BP 113/69
--- NOTE | 2018-08-30 00:44 | NUR ---
Pt. admission assessment and history is completed. Ibuprofen given for elevated temp (see emar). Morphine also given for chest (non-cardiac) pain (see emar). Bed alarm is on and yellow socks in place.
[2018-08-30 02:21] LABS: HEMATOCRIT 30.8 % (42.0-52.0); HEMOGLOBIN 10.6 gm/dL (14.0-18.0); MCH 35.5 pg (26.0-34.0); MCHC 34.3 g/dL (28.0-37.0); MCV 103.4 fL (80.0-100.0); RBC 2.98 mil/uL (4.50-6.00); RDW 13.9 % (10.5-14.5); WBC 15.8 thou/uL (4.0-11.0)
[2018-08-30 02:31] LABS: ANION GAP 11 mmol/L (7-16); BUN 15 mg/dL (7-18); CALCIUM 8.8 mg/dL (8.5-10.1); CHLORIDE 98 mmol/L (98-107); CO2 22 mmol/L (21-32); CREATININE 1.6 mg/dL (0.7-1.3); GLUCOSE 323 mg/dL (74-106); POTASSIUM 5.2 mmol/L (3.5-5.1); SODIUM 131 mmol/L (136-145)
[2018-08-30 02:39] LABS: TROPONIN-I <0.06 ng/mL (<0.06)
[2018-08-30 05:11] VITALS: BP 120/63
--- NOTE | 2018-08-30 06:00 | NUR ---
Pt. rested quietly most of the night when checked on during frequent rounds. He has been non-compliant with his yellow socks. Bed alarm is on.
[2018-08-30 07:42] VITALS: BP 114/75
--- NOTE | 2018-08-30 08:13 | EKG ---
[address] [address] ELECTROCARDIOGRAM REPORT Name: MYKESTEPHY A Room #: 455-P ADM IN M.R.#: [id number] ������������������ Admission: 08/29/18 ������������������ Attend Phys: Madhu Pandey MD Discharge: ������������������ Date of : 53 Report #: [id number] ����������������������������������������������������������������� [id number] THIS REPORT FOR: //name// [facility] ED Test Date: 2018-08-29 Test Time: 20:01:34 Pat Name: STEPHY STRINGER Department: Room: [facility] Gender: M Down Filler: BALTAZAR : 1955 Requested By: Kelly Fisher Order Number: [id number] MD: Fernando Reynaga Measurements Intervals [place] Rate: 114 P: 73 [place]: 137 QRS: 65 QRSD: 54 T: 59 QT: 296 QTc: 408 Interpretive Statements Sinus tachycardia Baseline wander in lead(s) V1 Compared to ECG 07/11/2018 20:15:55 Myocardial infarct finding no longer present Electronically Signed On 08-30-2018 8:13:00 CDT by Fernando Reynaga [email or web address] ��������������������������������������������� <ELECTRONICALLY SIGNED> ���������������������������������������� By: Fernando Reynaga MD ��������������������������������������������� 08/30/18 0813 00 00 Fernando Reynaga MD /EPI
--- NOTE | 2018-08-30 08:15 | EKG ---
[address] [address] ELECTROCARDIOGRAM REPORT Name: STEPHY STRINGER Room #: 455-P ADM IN M.R.#: [id number] ������������������ Admission: 08/29/18 ������������������ Attend Phys: Madhu Pandey MD Discharge: ������������������ Date of : 53 Report #: [id number] ����������������������������������������������������������������� [id number] THIS REPORT FOR: //name// [facility] Test Date: 2018-08-30 Test Time: 07:29:48 Pat Name: STEPHY STRINGER Department: Room: 455 P Gender: M Director Of Education And Training: PITER : 1955 Requested By: Nancy eYn Order Number: [id number] MD: Fernando Reynaga Measurements Intervals [place] Rate: 79 P: 69 [place]: 141 QRS: 72 QRSD: 61 T: 66 QT: 365 QTc: 419 Interpretive Statements Sinus rhythm Atrial premature complex Compared to ECG 07/11/2018 20:15:55 Atrial premature complex(es) now present Sinus tachycardia no longer present Myocardial infarct finding no longer present Electronically Signed On 08-30-2018 8:15:25 CDT by Fernando Reynaga [email or web address] ��������������������������������������������� <ELECTRONICALLY SIGNED> ���������������������������������������� By: Fernando Reynaga MD ��������������������������������������������� 08/30/18 0815 0729 0729 Fernando Reynaga MD /EPI
[2018-08-30 13:21] VITALS: BP 114/75
--- NOTE | 2018-08-30 13:40 | 2DMMODE ---
[facility] [address] [facility] [facility] [place] [address] 2 D/M-MODE ECHOCARDIOGRAM Name: STEPHY STRINGER Room #: 455-P ADM IN M.R.#: [id number] ������������� Admission: 08/29/18 ������������� Attend Phys: Madhu Pandey MD Discharge: ��� ������������� ��� Date of : 53 Date of Service: 08/30/18 1339 �� Report #: [id number] �������� ��������������������������������������������[id number] THIS REPORT FOR: //name// APPROVED REPORT Study performed: 08/30/2018 12:50:17 EXAM: Comprehensive 2D, Doppler, and color-flow Echocardiogram Patient Location: Echo lab Room #: [facility] Status: routine BSA: 1.47 HR: 86 bpm BP: 114/75 mmHg Rhythm: NSR Other Information Study Quality: Good/Low echo windows Indications Dyspnea Palpitations Chest Pain Hx: HTN, DM, Tobacco, PE. 2D Dimensions RVDd: 29.26 mm IVSd: 9.63 (7-11mm) LVOT Diam: 19.95 (18-24mm) LVDd: 41.39 mm PWd: 8.65 (7-11mm) LVDs: 26.62 (25-40mm) Aortic Root: 34.46 mm Volumes Left Atrial Volume (Systole) Single Plane 4CH: 27.02 mL Single Plane 2CH: 41.88 mL LA ESV Index: 27.00 mL/m2 Aortic Valve AoV Peak Marlon.: 1.50 m/s AO Peak Gr.: 8.96 mmHg LVOT Max P.52 mmHg LVOT Max V: 1.28 m/s ANTONIO Vmax: 2.67 cm2 Mitral Valve [facility] [place] [address] 2 D/M-MODE ECHOCARDIOGRAM Name: LAUREN STRINGERSonido Gutierres Room #: 455-P [facility] IN [facility].#: [id number] ������������� Admission: 08/29/18 ������������� Attend Phys: Madhu Pandey MD Discharge: ��� ������������� ��� Date of : 53 Date of Service: 08/30/18 1339 �� Report #: [id number] �������� ��������������������������������������������[id number] E/A Ratio: 0.8 MV Decel. Time: 368.06 ms MV E Max Marlon.: 0.64 m/s MV A Marlon.: 0.76 m/s MV PHT: 106.74 ms IVRT: 48.44 ms Pulmonary Valve PV Peak Marlon.: 1.11 m/s PV Peak Gr.: 4.94 mmHg Pulmonary Vein P Vein S: 0.84 m/s P Vein A: 0.36 m/s P Vein D: 0.38 m/s P Vein A Dur.: 100.3 msec P Vein S/D Ratio: 2.21 Tricuspid Valve TR Peak Marlon.: 2.49 m/s RAP Estimate: 5.00 mmHg TR Peak Gr.: 24.82 mmHg PA Pressure: 30.00 mmHg Left Ventricle The left ventricle is normal size. There is normal LV segmental wall motion. There is normal left ventricular wall thickness. Left ventricular systolic function is hyperdynamic. LVEF is 65-70%. Mild diastolic dysfunction is present (impaired relaxation pattern). Right Ventricle The right ventricle is normal size. The right ventricular systolic function is normal. Atria The left atrium size is normal. The right atrium size is normal. Aortic Valve The aortic valve is normal in structure. No aortic regurgitation is present. There is no aortic valvular stenosis. Mitral Valve The mitral valve is normal in structure. Trace mitral regurgitation. Tricuspid Valve The tricuspid valve is normal in structure. Trace tricuspid regurgitation. Estimated PAP is 30mmHg. [facility] [address] [place] [address] 2 D/M-MODE ECHOCARDIOGRAM Name: STEPHY STRINGER Room #: 455-P [facility] IN [facility].#: [id number] ������������� Admission: 08/29/18 ������������� Attend Phys: Madhu Pandey MD Discharge: ��� ������������� ��� Date of : 53 Date of Service: 08/30/18 1339 �� Report #: [id number] �������� ��������������������������������������������[id number] Pulmonic Valve Pulmonic valve is not well visualized. Great Vessels The aortic root is normal in size. Ascending aorta is not well visualized. IVC is normal in size and collapses >50% with inspiration. Pericardium There is no pericardial effusion. <Conclusion> The left ventricle is normal size. LVEF is 65-70%. The aortic valve is normal in structure. The mitral valve is normal in structure. Trace mitral regurgitation. The tricuspid valve is normal in structure. Trace tricuspid regurgitation. Estimated PAP is 30mmHg. Pulmonic valve is not well visualized. There is no pericardial effusion. ��������������������������������������������� <ELECTRONICALLY SIGNED> ���������������������������������������� By: Bernard Barrientos MD ��������������������������������������������� 08/30/18 1339 1339 1339 Bernard Barrientos MD /INF
--- NOTE | 2018-08-30 13:53 | NUR ---
PT ADMITTED RELATED TO BRENT. CM REVIEWED CHART AND SPOKE WITH CARE TEAM. CM MET [facility] PT AT BEDSIDE THISD DAY. PT IS A&O X4. CM ROLE INTRODUCED. PT INDICATED HE LIVES IN AN APARTMENT ALONE WITH 28 STEPS TO ENTER AND NO STEPS INSIDE. PT INDICATED THAT HE HAS 28 STEPS TO ENTER AND NO STEPS INSIDE. 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 PT INDIC[facility]. PT INDICATED HE PLANS TO RETURN HOME HOME MEDICALLY STABLE. CM TO FOLLOW INDICATED WITH DC PLANNING.
[2018-08-30 14:13] VITALS: BP 109/65
--- NOTE | 2018-08-30 18:16 | NUR ---
PT VS STABLE THROUGHOUT SHIFT. PT WAS VERY NAUSEOUS THIS MORNING, ZOFRAN DID NOT ELIMINATE NAUSEA. PT GIVEN PROMETHEZINE WHICH ELIMINATED NAUSEA AND PT C/O HUNGER. ABLE TO TOLERATE CLEAR AND FULL LIQUIDS. PT C/O PAIN, MEDICATION ADDRESSED COMPLAINTS. PT RESTING COMFORTABLY.
[2018-08-30 19:55] VITALS: BP 108/71
[2018-08-30 21:00] VITALS: BP 108/71
--- NOTE | 2018-08-31 04:31 | NUR ---
Pt. rested quietly at intervals during the night when checked on during the night. He did c/o left sided armpit pain and was given iv morphine (see emar) with some relief noted. Bed alarm is on.
[2018-08-31 05:26] VITALS: BP 113/71
[2018-08-31 07:24] VITALS: BP 107/61
--- NOTE | 2018-08-31 10:34 | NUR ---
TOWARDS POC PT A/O X4, VSS, AFEBRILE. C/O PAIN MANAGED BY MEDS. NO NV NOTED. ANTICIPATING DC TODAY. WILL CONTINUE TO MONITOR.
[2018-08-31] MEDS ORDERED: ASPIR 8181 MG PO (12:30)
[2018-08-31] MEDS ORDERED: ACETAMINOPHEN325 M1 PO (12:30)
[2018-08-31] MEDS ORDERED: COLACE 100 MG100 MG PO (12:30)
[2018-08-31 12:41] VITALS: BP 107/61
== END 2018-08-31 13:12 | disposition home or self-care (01) | DRG 682 ==
LOC: ER 19:44 → EROBS 22:20 → 4W 22:20
PROVIDERS: Emergency Medicine; Nurse Practitioner Family; ADMIT Internal Medicine
DX: N17.9 Acute kidney failure, unspecified (principal); E43 Unspecified severe protein-calorie malnutrition; N39.0 Urinary tract infection, site not specified; K70.30 Alcoholic cirrhosis of liver without ascites; F17.200 Nicotine dependence, unspecified, uncomplicated; K40.90 Unilateral inguinal hernia, without obstruction or gangrene, not specified as recurrent; R07.89 Other chest pain; D72.829 Elevated white blood cell count, unspecified; E86.0 Dehydration; E11.22 Type 2 diabetes mellitus with diabetic chronic kidney disease; N18.9 Chronic kidney disease, unspecified; I12.9 Hypertensive chronic kidney disease with stage 1 through stage 4 chronic kidney disease, or unspecified chronic kidney disease; Z90.49 Acquired absence of other specified parts of digestive tract; Z68.1 Body mass index [BMI] 19.9 or less, adult; Z86.718 Personal history of other venous thrombosis and embolism; Z86.711 Personal history of pulmonary embolism; Z79.899 Other long term (current) drug therapy; Z71.6 Tobacco abuse counseling
CPT/HCPCS: 10045

== ENCOUNTER 2018-11-24 13:29 | Emergency (ER) | payer OTHER ==
[~2018-11-24] VITALS: Ht 182.9 cm; Wt 54.6 kg
[~2018-11-24 13:29] MED LIST changes: +ACETAMINOPHEN325 M1 PO; +COLACE 100 MG100 MG PO; +HUMALOG100 UNIT/2
[2018-11-24 14:48] LABS: URINE BILIRUBIN NEGATIVE (Negative); URINE BLOOD 2+ (Negative); URINE CLARITY CLEAR; URINE COLOR YELLOW; URINE GLUCOSE-RANDOM* 3+ (Negative); URINE KETONES NEGATIVE (Negative); URINE LEUKOCYTES TRACE (Negative); URINE NITRITE NEGATIVE (Negative); URINE PROTEIN (DIPSTICK) NEGATIVE (Negative); URINE SPECIFIC GRAVITY <= 1.005 (1.005-1.035); URINE UROBILINOGEN 0.2 E.U./dl (0.2-1.0)
[2018-11-24 15:03] LABS: ABSOLUTE NEUTROPHILS 10.9 thou/uL (1.4-8.2); BASOPHILS 0.6 % (0.0-2.0); EOSINOPHILS 1.3 % (0.0-3.0); HEMATOCRIT 30.8 % (42.0-52.0); HEMOGLOBIN 10.3 gm/dL (14.0-18.0); LYMPHOCYTES 20.4 % (24.0-44.0); MCH 32.7 pg (26.0-34.0); MCHC 33.6 g/dL (28.0-37.0); MCV 97.4 fL (80.0-100.0); MONOCYTES 7.4 % (1.0-8.0); PLATELET COUNT 423 thou/uL (150-400); POLYS 70.3 % (36.0-66.0); RBC 3.16 mil/uL (4.50-6.00); RDW 13.3 % (10.5-14.5); WBC 15.5 thou/uL (4.0-11.0)
[2018-11-24 15:10] LABS: BACTERIA None Seen /HPF (None Seen); CASTS None Seen /LPF (None Seen); SQUAMOUS 0-3 Few /LPF (0-3)
[2018-11-24 15:11] LABS: CRYSTALS None Seen /LPF (None Seen); URINE WBC 0-5 Rare /HPF (0-5)
[2018-11-24 15:12] LABS: CALCIUM 8.6 mg/dL (8.5-10.1); CREATININE 1.2 mg/dL (0.7-1.3); POTASSIUM 4.5 mmol/L (3.5-5.1)
[2018-11-24 15:17] LABS: ALBUMIN 2.7 g/dL (3.4-5.0); DIRECT BILIRUBIN 0.2 mg/dL (<0.1-0.3); TOTAL BILIRUBIN 0.4 mg/dL (<0.1-1.0); TOTAL PROTEIN 6.4 g/dL (6.4-8.2)
[2018-11-24] MEDS ORDERED: VITAMIN D400 UNIT PO (16:37)
[2018-11-24 19:28] VITALS: BP 107/61
== END 2018-11-24 19:30 | disposition short-term general hospital (02) ==
LOC: ER 13:29
PROVIDERS: Nurse Practitioner
DX: R18.8 Other ascites (principal); I10 Essential (primary) hypertension; E11.9 Type 2 diabetes mellitus without complications; Z90.49 Acquired absence of other specified parts of digestive tract; F17.210 Nicotine dependence, cigarettes, uncomplicated

== ENCOUNTER 2019-02-08 14:20 | Emergency (ER) | payer OTHER ==
[~2019-02-08] VITALS: Ht 170.2 cm; Wt 49.9 kg
[~2019-02-08 14:20] MED LIST changes: +VITAMIN D400 UNIT PO
[2019-02-08 14:31] LABS: URINE BILIRUBIN NEGATIVE (Negative); URINE BLOOD NEGATIVE (Negative); URINE CLARITY CLEAR; URINE COLOR YELLOW; URINE GLUCOSE-RANDOM* TRACE (Negative); URINE KETONES NEGATIVE (Negative); URINE LEUKOCYTES-REFLEX NEGATIVE (Negative); URINE NITRITE-REFLEX NEGATIVE (Negative); URINE PROTEIN (DIPSTICK) NEGATIVE (Negative); URINE UROBILINOGEN 0.2 E.U./dl (0.2-1.0)
[2019-02-08 15:14] LABS: BASOPHILS 1.1 % (0.0-2.0); EOSINOPHILS 2.3 % (0.0-3.0); HEMATOCRIT 26.2 % (42.0-52.0); HEMOGLOBIN 8.6 gm/dL (14.0-18.0); LYMPHOCYTES 24.4 % (24.0-44.0); MCH 35.2 pg (26.0-34.0); MCHC 32.9 g/dL (28.0-37.0); MCV 107.1 fL (80.0-100.0); MONOCYTES 2.4 % (1.0-8.0); PLATELET COUNT 565 thou/uL (150-400); POLYS 69.8 % (36.0-66.0); RBC 2.45 mil/uL (4.50-6.00); RDW 16.4 % (10.5-14.5); WBC 11.5 thou/uL (4.0-11.0)
[2019-02-08 15:20] LABS: CALCIUM 9.2 mg/dL (8.5-10.1); CREATININE 2.4 mg/dL (0.7-1.3); POTASSIUM 5.5 mmol/L (3.5-5.1)
[2019-02-08 15:26] LABS: ALBUMIN 3.4 g/dL (3.4-5.0); TOTAL BILIRUBIN 0.2 mg/dL (<0.1-1.0); TOTAL PROTEIN 8.1 g/dL (6.4-8.2)
[2019-02-08 16:04] VITALS: BP 154/93
--- NOTE | 2019-02-10 15:04 | EKG ---
[address] [address] ELECTROCARDIOGRAM REPORT Name: STEPHY STRINGER Room #: [facility]#: [id number] Admission: 02/08/19 Attend Phys: Discharge: 02/08/19 Date of : 53 Report #: [id number] THIS REPORT FOR: //name// [facility] ED Test Date: 2019-02-08 Test Time: 15:00:39 Pat Name: STEPHY STRINGER Department: Room: Gender: M Machine Sign Writer: mat : 1955 Requested By: Jeane Lopez Order Number: [id number] MD: Fernando Reynaga Measurements Intervals [place] Rate: 104 P: 63 TN: 143 QRS: 63 QRSD: 66 T: 56 QT: 306 QTc: 403 Interpretive Statements Sinus tachycardia Compared to ECG 08/30/2018 07:29:48 Sinus rhythm no longer present Atrial premature complex(es) no longer present Electronically Signed On 02-10-2019 15:04:45 CDT by Fernando Reynaga [email or web address] <ELECTRONICALLY SIGNED> By: Fernando Reynaga MD 02/10/19 1504 1500 1500 Fernando Reynaga MD /АННА
== END 2019-02-08 16:04 | disposition home or self-care (01) ==
LOC: ER 14:20
PROVIDERS: Nurse Practitioner Family
DX: E87.5 Hyperkalemia (principal); I10 Essential (primary) hypertension; E11.9 Type 2 diabetes mellitus without complications; F17.210 Nicotine dependence, cigarettes, uncomplicated; Z86.711 Personal history of pulmonary embolism; Z86.718 Personal history of other venous thrombosis and embolism; Z90.49 Acquired absence of other specified parts of digestive tract; Z85.51 Personal history of malignant neoplasm of bladder; Z79.4 Long term (current) use of insulin

== ENCOUNTER 2019-03-04 18:11 | Inpatient (IN) | payer OTHER ==
[~2019-03-04] VITALS: Ht 170.2 cm; Wt 49.0 kg
[~2019-03-04 18:11] MED LIST changes: -HUMALOG100 UNIT/2; +HUMALOG100 UNIT/2 SUBQ
[2019-03-04 19:05] VITALS: BP 131/71
[2019-03-04 19:28] LABS: ABSOLUTE NEUTROPHILS 8.4 thou/uL (1.4-8.2); BASOPHILS 0.6 % (0.0-2.0); EOSINOPHILS 0.9 % (0.0-3.0); HEMATOCRIT 26.5 % (42.0-52.0); HEMOGLOBIN 8.8 gm/dL (14.0-18.0); LYMPHOCYTES 23.7 % (24.0-44.0); MCH 34.2 pg (26.0-34.0); MCHC 33.2 g/dL (28.0-37.0); MCV 103.2 fL (80.0-100.0); MONOCYTES 6.9 % (1.0-8.0); PLATELET COUNT 388 thou/uL (150-400); POLYS 67.9 % (36.0-66.0); RBC 2.57 mil/uL (4.50-6.00); RDW 15.6 % (10.5-14.5); WBC 12.3 thou/uL (4.0-11.0)
[2019-03-04 19:36] LABS: CALCIUM 8.6 mg/dL (8.5-10.1); CREATININE 1.8 mg/dL (0.7-1.3); POTASSIUM 4.9 mmol/L (3.5-5.1)
[2019-03-04 19:41] LABS: URINE BILIRUBIN NEGATIVE (Negative); URINE BLOOD NEGATIVE (Negative); URINE CLARITY CLEAR; URINE COLOR YELLOW; URINE GLUCOSE-RANDOM* TRACE (Negative); URINE KETONES TRACE (Negative); URINE LEUKOCYTES-REFLEX NEGATIVE (Negative); URINE NITRITE-REFLEX NEGATIVE (Negative); URINE PROTEIN (DIPSTICK) NEGATIVE (Negative); URINE SPECIFIC GRAVITY 1.015 (1.005-1.035); URINE UROBILINOGEN 0.2 E.U./dl (0.2-1.0)
[2019-03-04 19:43] LABS: ALBUMIN 2.7 g/dL (3.4-5.0); TOTAL BILIRUBIN 0.3 mg/dL (<0.1-1.0); TOTAL PROTEIN 7.3 g/dL (6.4-8.2)
[2019-03-04 19:44] LABS: INR 1.2; PROTIME 12.1 Seconds (9.3-11.4)
[2019-03-04 21:09] VITALS: BP 150/93
[2019-03-04] MEDS ORDERED: SUPER THERAVIT1 EACH PO (21:16)
[2019-03-04] MEDS ORDERED: ZOFRAN4 MG PO (21:16)
[2019-03-04 21:51] VITALS: BP 150/93
[2019-03-04] MEDS ORDERED: VITAMIN B-1100 M2 PO (22:45)
[2019-03-04] MEDS ORDERED: FOLIC ACID1 MG PO (22:46)
[2019-03-04] MEDS ORDERED: MAG-OXIDE400 MG PO (22:49)
[2019-03-04] MEDS ORDERED: OMEPRAZOLE 20 M20 M1 PO (22:51)
[2019-03-04] MEDS ORDERED: SPIRONOLACTONE25 MG PO (22:53)
[2019-03-04] MEDS ORDERED: HYDREA 500 MG500 M1 PO (22:59)
[2019-03-05] VITALS (7 sets, daily range): BP systolic 115–159; BP diastolic 71–91
--- NOTE | 2019-03-05 00:48 | NUR ---
PT ARRIVED FROM ED AT 2150HRS. PT IS AOX4 AND WAS ABLE TO ANSWER ALL ADMISSION RELATED QUESTIONS. FALL PRECAUTION IN PLACE. PT SIGNED CONSENTS. PT WAS ORIENTED TO THE ROOM AND THE UNIT. PT COMPLAINED OF PAIN AND NAUSEA AND WAS TREATED WITH PRN MEDS. ORDERS RECEIVED AND IMPLEMENTED. VSS AND NO S/S OF ACUTE DISTRESS. WILL CONTINUE TO MONITOR.
--- NOTE | 2019-03-05 18:13 | NUR ---
ASSUMED CARE 0700. PAIN MANAGED WITH MEDICATIONS, BECAME MORE IRRITABLE THE SHIFT PROGRESSED. PT INDICATED HE DRINKS "A LOT" "TOO MUCH" ETOH. 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 NOTIFIED DR LAUREN OF PATIENT COMPLAINTS OF PAIN AND REQUEST FOR MORPHINE WELL INCREASE IRRITABLE. ON STAND BY PRECAUTIONS. REFUSED LISPRO PER ORDER STATING HIS BLOOD SUGARS WILL BOTTOM OUT. NO CWA ORDERS AT THIS TIME. NPO TONIGHT FOR THORACENTESIS TOMORROW. CALLS APPROPRIATELTY.
--- NOTE | 2019-03-05 20:15 | NUR ---
Pt. with low blood sugar of 46 and is asymtomatic. He did have juice and a snack which brought his blood sugar up to 81. No insulin given at hs as pt. is npo after midnoc tonight. He also is noncompliant with the bed alarm. Pt. is steady on his feet.
[2019-03-06 05:45] LABS: % SATURATION 24 % (20-39); IRON 40 ug/dL (65-175); TIBC 166 ug/dL (250-450)
--- NOTE | 2019-03-06 07:30 | NUR ---
Pt. rested quietly at intervals during the night when checked on during frequent rounds. Pain meds given for c/o abdominal pain (see emar) with some relief noted. He also c/o nausea and antinausea med given (see emar) with some relief noted. No c/o shortness of air. Continues to refuse staff to set bed alarm.
[2019-03-06 07:39] VITALS: BP 114/77
--- NOTE | 2019-03-06 09:10 | EKG ---
[address] [address] ELECTROCARDIOGRAM REPORT Name: STEPHY STRINGER Room #: 450- ADM IN M.R.#: [id number] Admission: 03/04/19 Attend Phys: Stanley Fischer MD Discharge: Date of : 53 Report #: [id number] THIS REPORT FOR: //name// [facility] ED Test Date: 2019-03-04 Test Time: 19:21:30 Pat Name: STEPHY STRINGER Department: Room: [facility] Gender: M Character Actress: ALEX : 1955 Requested By: Jeane Lopez Order Number: [id number] MD: Cayetano Lizama Measurements Intervals [place] Rate: 94 P: 47 [place]: 140 QRS: 59 QRSD: 58 T: 55 QT: 321 QTc: 402 Interpretive Statements Sinus rhythm Atrial premature complex Compared to ECG 02/08/2019 15:00:39 Atrial premature complex(es) now present Electronically Signed On 03-06-2019 9:09:55 CDT by Cayetano Lizama [email or web address] <ELECTRONICALLY SIGNED> By: Cayetano Lizama MD, [facility] [id number] 20 20 Cayetano Lizama MD, [facility] /EPI
[2019-03-06 11:11] LABS: CLARITY CLEAR; COLOR YELLOW; SOURCE RIGHT PARACENTESIS; TOTAL VOLUME 60 mL
[2019-03-06 11:22] LABS: BF NUCLEATED CELLS 102; BF RBC 300
--- NOTE | 2019-03-06 12:35 | NUR ---
PT ADMITTED RELATED TO ABD PAIN; ASCITES. CM REVIEWED CHART AND SPOKE WITH CARE TEAM. CM MET WITH PT AT BEDSIDE THIS DAY. PT IS A&O X4. CM ROLE INTRODUCED. PT INDICATED HE LIVES ALONE IN AN APARTMENT WITH 20 STEPS TO ENTER AND NO STEPS INSIDE. 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 PT INDICATED HE HAD [place] IN THE [place]OUGH [place] BUT CAN'T RECALL PROVIDER. PT INDICATED HIS PCP IS DR. JEFF AT [facility]. [facility] A CAB RIDE ONLY COSTS $4.00 OPPOSED TO [facility]40.00 TO [facility]. PT INDICATED HE PLANS TO RETURN HOME ONCE MEDICALLY STABLE. CM OFFERED RESOURCES FOR ETHOL ABUSE PT DECLINED. PT INDICATED HE NEEDED CAB RIDE HOME. CM COMPLTED CAB VOUCHER AND GAVE IT TO PT'S NURSE. CARE TEAM INDICATED THEY ANTICIPATE POSSIBLE DC HOME TODAY AFTER PARACENTESIS.
[2019-03-06 12:47] LABS: BF MACROPHAGE 49; BF NEUTROPHILS 16
[2019-03-06 13:37] VITALS: BP 114/77
--- NOTE | 2019-03-06 14:31 | NUR ---
Assumed patient care at 0715. Patient went for a Paracentisis late this am. He had a dose of Fentanyl and one dose of Morphine in the am; he stated "all is does is take the edge off." Patient was very agitated, wanted to leave as soon as possible. He refused his Insulin at noon, stating, "all I want to do is go home!" Vital signs have been stable. Patient signed Discharge Paperwork after verbalizing an understanding. Patient used a cab voucher provided by the facility, to return home.
--- NOTE | 2019-03-08 08:11 | HC ---
[facility] [place] [address] CONSULTATION Name: STEPHY STRINGER Room #: 450-[facility] IN M.R.#: [id number] Admission: 03/04/19 Attend Phys: Stanley Fischer MD Discharge: 03/06/19 Date of : 53 Report #: [id number] THIS REPORT FOR: //name// CC: [facility] physician/PCP Blanquita Petersen MD DATE OF SERVICE: 03/05/2019 HISTORY OF PRESENT ILLNESS: The patient is a 63-year-old male with a history of cirrhosis likely due to alcohol abuse over the years with a history of ascites, began having increasing abdominal pain over the last 3 days fairly diffuse and low in nature. He denies any bleeding. No previous history of GI bleed per the patient as well. Denies any fevers or chills. He was noted to have an elevated white count on admission of 12.3. He has undergone several paracenteses in the past, apparently was also [facility]. His creatinine today is 1.8, in January this year was 2.4. He has currently been started on spironolactone 25 b.i.d. He denies any nausea or vomiting. No lower extremity edema. CT scan of the abdomen and pelvis, most recently was 11/24/2018 showing cirrhotic liver, large amount of abdominal ascites, splenectomy noted, diffusely thickened gastric folds, pancreatic calcifications consistent with chronic pancreatitis, mild atelectasis and small bilateral pleural effusions. Last paracentesis documented here was on 04/15/2018 in which 4000 mL was removed. The patient has been started on antibiotics for the possibility of SBP. An ultrasound has been with paracentesis has been ordered for tomorrow. PAST MEDICAL HISTORY: End-stage liver disease with history of ascites, history of alcohol abuse, previous cholecystectomy, history of pancreatitis, diabetes, previous history of DVT, pulmonary embolus, bladder cancer, status post surgery, apparently, questionable history of sickle cell. ALLERGIES: No known drug allergies. MEDICATIONS ON ADMISSION: Aspirin, Tylenol, Colace, thiamine, folic acid, magnesium oxide, omeprazole 20 mg per day, spironolactone 25 mg b.i.d. Hydrea, insulin, vitamin D, Zofran p.r.n., multivitamin. REVIEW OF SYSTEMS: As per HPI. FAMILY HISTORY: Negative for colon cancer. SOCIAL HISTORY: He smokes cigarettes on a regular basis. He has a long history of alcohol abuse. He reports 2 beers per week at this time, which is significantly [place] [address] CONSULTATION Name: MYKESTEPHY Bhavik Room #: 450-[facility] IN M.R.#: [id number] Admission: 03/04/19 Attend Phys: Stanley Fischer MD Discharge: 03/06/19 Date of : 53 Report #: [id number] PHYSICAL EXAMINATION: VITAL SIGNS: Temperature is 97.9, pulse 96, blood pressure 115/71, respiratory rate is 20. GENERAL: He is alert and oriented x 3, in no acute distress. HEENT: Sclerae nonicteric. Oropharynx is clear. NECK: Supple, without lymphadenopathy. CARDIOVASCULAR: Regular rate and rhythm. CHEST: Clear to auscultation anteriorly bilaterally. ABDOMEN: Distended. He is mildly tender to palpation. He is not tense. Positive bowel sounds noted. EXTREMITIES: No cyanosis, clubbing or edema. Extremities are thin in general. LABORATORY DATA: Sodium 136, potassium 4.9, chloride 105, bicarbonate 21, BUN 7, creatinine 1.8, glucose 183 and AST 40. Lipase is 18, total bilirubin 0.3, calcium 8.6, alkaline phosphatase 358, ALT 21, total protein 7.3, albumin 2.7. Lactic acid level 2.1, previous iron saturation was 97 in 2018. INR is 1.2. WBC 12.3, hemoglobin 8.8, MCV 103.2, platelet count is 388. Previous viral hepatitis panel was negative in 02/2018. Alpha fetoprotein level was 4.4. Ceruloplasmin 28.3 and a mitochondrial antibody was normal at 5.5. Smooth muscle antibody is normal at 11. ASSESSMENT AND PLAN: End-stage liver disease with a history of ascites. The patient has undergone several paracenteses in the past. It is unclear if he has been on diuretics recently. He is on at this time. He does have a creatinine of 1.8. Need to monitor his creatinine closely. Agree with paracentesis, which has been ordered for tomorrow. Need to rule out the possibility of spontaneous bacterial peritonitis with his abdominal pain. Agree with Rocephin, which has already been started. We will repeat an iron saturation, in the past, it was 97%. Unclear if hemochromatosis may be playing a role. He has a known history of alcohol abuse, still continues to drink, but a much lower rate. No signs of bleeding. Thank you for allowing me to participate in his care. <ELECTRONICALLY SIGNED> By: Jose Navarrete MD 03/08/19 0811 1446 30 Jose Navarrete MD /nt
== END 2019-03-06 14:20 | disposition home or self-care (01) | DRG 434 ==
LOC: ER 18:11 → EROBS 20:16 → 4W 20:16 → EROBS 20:20 → 4W 21:52
PROVIDERS: Nurse Practitioner Acute Care; Nurse Practitioner Family; Specialist; ADMIT Internal Medicine
PROC: 0W9G3ZZ Drainage of Peritoneal Cavity, Percutaneous Approach (ICD-10-PCS; principal; 2019-03-06)
DX: K70.31 Alcoholic cirrhosis of liver with ascites (principal); D64.9 Anemia, unspecified; I12.9 Hypertensive chronic kidney disease with stage 1 through stage 4 chronic kidney disease, or unspecified chronic kidney disease; N18.3 Chronic kidney disease, stage 3 (moderate); F17.210 Nicotine dependence, cigarettes, uncomplicated; F80.82 Social pragmatic communication disorder; E11.22 Type 2 diabetes mellitus with diabetic chronic kidney disease; F10.10 Alcohol abuse, uncomplicated; Z86.718 Personal history of other venous thrombosis and embolism; Z86.711 Personal history of pulmonary embolism; Z79.899 Other long term (current) drug therapy; Z85.51 Personal history of malignant neoplasm of bladder; Z90.49 Acquired absence of other specified parts of digestive tract; Z79.4 Long term (current) use of insulin; Z71.6 Tobacco abuse counseling
CPT/HCPCS: 10040

== ENCOUNTER 2019-05-12 08:33 | Emergency (ER) | payer OTHER ==
[~2019-05-12] VITALS: Ht 170.2 cm; Wt 59.0 kg
[~2019-05-12 08:33] MED LIST changes: +FOLIC ACID1 MG PO; +HYDREA 500 MG500 M1 PO; +MAG-OXIDE400 MG PO; +OMEPRAZOLE 20 M20 M1 PO; +SPIRONOLACTONE25 MG PO; +SUPER THERAVIT1 EACH PO; +VITAMIN B-1100 M2 PO; +ZOFRAN4 MG PO
[2019-05-12 09:10] LABS: ABSOLUTE NEUTROPHILS 6.3 thou/uL (1.4-8.2); BASOPHILS 0.4 % (0.0-2.0); EOSINOPHILS 0.1 % (0.0-3.0); HEMATOCRIT 26.9 % (42.0-52.0); LYMPHOCYTES 21.4 % (24.0-44.0); MCH 37.3 pg (26.0-34.0); MCHC 33.4 g/dL (28.0-37.0); MCV 111.8 fL (80.0-100.0); MONOCYTES 6.6 % (1.0-8.0); PLATELET COUNT 316 thou/uL (150-400); POLYS 71.5 % (36.0-66.0); RBC 2.41 mil/uL (4.50-6.00); RDW 19.5 % (10.5-14.5); WBC 8.9 thou/uL (4.0-11.0)
[2019-05-12 09:23] LABS: CREATININE 2.1 mg/dL (0.7-1.3); POTASSIUM 4.2 mmol/L (3.5-5.1)
[2019-05-12 09:30] LABS: ALBUMIN 2.4 g/dL (3.4-5.0); DIRECT BILIRUBIN 0.2 mg/dL (<0.1-0.2); TOTAL BILIRUBIN 0.8 mg/dL (<0.1-1.0); TOTAL PROTEIN 6.5 g/dL (6.4-8.2)
[2019-05-12 11:10] LABS: URINE BILIRUBIN NEGATIVE (Negative); URINE BLOOD NEGATIVE (Negative); URINE CLARITY CLEAR; URINE COLOR YELLOW; URINE GLUCOSE-RANDOM* NEGATIVE (Negative); URINE KETONES NEGATIVE (Negative); URINE LEUKOCYTES-REFLEX NEGATIVE (Negative); URINE NITRITE-REFLEX NEGATIVE (Negative); URINE PROTEIN (DIPSTICK) NEGATIVE (Negative); URINE UROBILINOGEN 0.2 E.U./dl (0.2-1.0)
[2019-05-12 11:56] LABS: ANISOCYTOSIS 2+
[2019-05-12 11:57] LABS: MACROCYTES 3+
[2019-05-12 12:57] VITALS: BP 121/81
--- NOTE | 2019-05-12 15:05 | EKG ---
[address] [address] ELECTROCARDIOGRAM REPORT Name: STEPHY STRINGER Room #: [facility]#: [id number] Admission: 05/12/19 Attend Phys: Discharge: 05/12/19 Date of : 53 Report #: [id number] THIS REPORT FOR: //name// [facility] ED Test Date: 2019-05-12 Test Time: 08:40:52 Pat Name: STEPHY STRINGER Department: Room: Gender: M Wet Machine Tender: MEGAN : 1955 Requested By: Kelly Fisher Order Number: [id number] MD: Fernando Reynaga Measurements Intervals [place] Rate: 102 P: 53 [place]: 141 QRS: 53 QRSD: 77 T: 58 QT: 337 QTc: 439 Interpretive Statements Sinus tachycardia Low voltage, extremity and precordial leads Compared to ECG 03/04/2019 19:21:30 Low QRS voltage now present Sinus rhythm no longer present Atrial premature complex(es) no longer present Electronically Signed On 05-12-2019 15:04:51 PHP MYSQL WEB DEVELOPER by Fernando Reynaga [email or web address] <ELECTRONICALLY SIGNED> By: Fernando Reynaga MD 05/12/19 1504 0840 0840 Fernando Reynaga MD /EPI
== END 2019-05-12 12:58 | disposition home or self-care (01) ==
LOC: ER 08:33
PROVIDERS: Emergency Medicine
DX: K21.9 Gastro-esophageal reflux disease without esophagitis (principal); I10 Essential (primary) hypertension; E11.9 Type 2 diabetes mellitus without complications; F17.210 Nicotine dependence, cigarettes, uncomplicated; Z90.49 Acquired absence of other specified parts of digestive tract; Z86.718 Personal history of other venous thrombosis and embolism; Z86.711 Personal history of pulmonary embolism; Z79.4 Long term (current) use of insulin